=== PATIENT | female | born 1935 | race Caucasian/White ===

== ENCOUNTER 2024-12-10 10:21 | Emergency (ER) | payer OTHER ==
[~2024-12-10] VITALS: Ht 157.5 cm; Wt 81.6 kg
[2024-12-10 10:26] VITALS: TEMP 98.9
[2024-12-10] MEDS ORDERED: dexaMETHasone SOD PHOSPHATE 1 ML ONE (11:23)
[2024-12-10 11:25] LABS: PLATELET COUNT (AUTO) 72 K/uL (150-450); RED BLOOD CELL COUNT(AUTO) 4.09 MIL/uL (4.0-5.2); RED CELL DISTRIBUTION WIDTH 16.4 % (11.5-15.0); WHITE BLOOD COUNT (AUTO) 7.0 K/uL (4.3-11.0)
[2024-12-10] MEDS ORDERED: REMDESIVIR (CHARGED) 200 MG, *LOADING DOSE 1 EA in IV NS 0.9% 210 ML IV ONE (11:30)
[2024-12-10] MEDS: dexaMETHasone SOD PHOSPHATE 10 MG/ML VIAL IV ONE (11:30)
[2024-12-10 11:32] LABS: CALCIUM, SERUM 8.9 mg/dL (8.5-10.1); CREATININE 0.9 mg/dL (0.6-1.3); SODIUM SERUM 140 mmol/L (136-145); UREA NITROGEN, BLOOD 16 mg/dL (7-18)
[2024-12-10 11:44] LABS: NT-PRO BNP 839 pg/mL (0-125)
[2024-12-10 13:01] LABS: LYMPHOCYTES % (MANUAL) 13 % (16-48); MONOCYTES % (MANUAL) 30 % (0-11.0); NEUTROPHILS % (MANUAL) 57 (42-76); PLATELET ESTIMATE DECREASED
[2024-12-10 15:00] VITALS: BP 120/56; O2SAT 98
== END 2024-12-10 16:22 | disposition short-term general hospital (02) ==
LOC: ER 11:16
DX: U07.1 COVID-19 (principal); R09.02 Hypoxemia; I10 Essential (primary) hypertension; K21.9 Gastro-esophageal reflux disease without esophagitis
CPT/HCPCS: 99285; 96374; 93005; 71045; 85027; 80048; 85007; 36415; 84484 ×2; 87081; 83880; 87426; J1100; J7050; A4216; J2048